=== PATIENT | female | born 1985 | race Two or more races ===

== ENCOUNTER 2019-04-29 20:03 | Emergency (ER) | payer OTHER ==
[~2019-04-29] VITALS: Ht 172.7 cm; Wt 65.8 kg
[2019-04-29 20:55] VITALS: BP 150/101
== END 2019-04-29 23:31 | disposition home or self-care (01) ==
LOC: ER 20:07
DX: F41.9 Anxiety disorder, unspecified (principal); M35.9 Systemic involvement of connective tissue, unspecified